=== PATIENT | male | born 1975 | race Caucasian/White ===

== ENCOUNTER 2017-10-22 23:22 | Emergency (ER) | payer SELFPAY ==
[~2017-10-22] VITALS: Ht 170.2 cm; Wt 72.6 kg
[2017-10-22 23:30] VITALS: BP 120/71
[2017-10-23] MEDS ORDERED: DIAZEPAM 10 MG/2 ML SYR IM ONE (00:20)
--- NOTE | 2017-10-23 00:41 | ER Report ---
History and Physical Time Seen By MD: 00:21 Hx. of Stated Complaint: PT STATES THAT HE HAS PAIN IN HIS UPPER BACK BETWEEN HIS SHOULDERS FROM CARRYING A BUCKET OF TOOLS UP TO HIS HOTEL ROOM YESTERDAY AFTERNOON. HAS TAKEN TYLENOL AND ALEVE AT HOME. HPI/ROS CHIEF COMPLAINT: back pain HISTORY OF PRESENT ILLNESS: R sided pain between the shoulder blades onset yesterday after carrying a 40 lb toolbox which slid suddenly off the back of a truck and pulled suddenly; pain worsened and feels achy today. REVIEW OF SYSTEMS: Respiratory: No cough, no dyspnea. Cardiovascular: No chest pain, no palpitations. Gastrointestinal: No vomiting, no abdominal pain. Musculoskeletal: No pain otherwise in extremities. Allergies: Coded Allergies: No Known Drug Allergies (Unverified , 10/22/17) Home Meds No Active Prescriptions or Reported Meds Constitutional Vital Sign - Last 24 Hours 10/22/17 23:30 Temp 98.0 Pulse 72 Resp 14 B/P (MAP) 120/71 Pulse Ox 94 O2 Delivery Room Air Physical Exam General Appearance: no acute distress, well developed, well nourished Eyes: Pupils equal and round no pallor or injection. ENT, Mouth: Mucous membranes are moist. Respiratory: There are no retractions, lungs are clear to auscultation. Cardiovascular: Regular rate and rhythm. No murmers, gallops or rubs Gastrointestinal: Abdomen is soft and non tender, no masses, bowel sounds normal. Neurological: normal cranial nerves, normal strength and sensation, normal gait Skin: Warm and dry, no rashes. Musculoskeletal: Neck is supple non tender. C,T and L-spine are nontender to palpation Extremities are nontender, nonswollen and have full range of motion. no edema DIFFERENTIAL DIAGNOSIS: After history and physical exam differential diagnosis was considered for muscle pull, muscle strain; no signs of fracture or dislocation, no signs of epidural or spinal abscess Medical Decision Making ED Course/Re-evaluation ED Course Plan of care was discussed and patient requested narcotics I offered Toradol and Valium IM patient refused Toradol and said he would accept the Valium. Per nursing staff patient was requesting narcotics and grabbing about not getting narcotics on the way out of the ER. I explained to him that narcotics would not solve the underlying problem. RN attempted to the same. He stated his doc would give him percs. He stated that the junkies have ruined things for everyone. Decision to Disposition Date: Oct 23, 2017 Decision to Disposition Time: 00:38 Depart Departure Latest Vital Signs Vital Signs Date Time Temp Pulse Resp B/P (MAP) Pulse Ox O2 Delivery O2 Flow Rate FiO2 10/22/17 23:30 98.0 72 14 120/71 94 Room Air Impression: Primary Impression: Back pain Additional Impression: Musculoskeletal pain Condition: Improved Disposition: HOME OR SELF-CARE New Scripts No Active Prescriptions or Reported Meds Patient Instructions: Musculoskeletal Pain (ED) Problem Qualifiers MALLORY LUCIO MD Oct 23, 2017 00:40
== END 2017-10-23 00:29 | disposition home or self-care (01) ==
LOC: ER 23:32
DX: M54.9 Dorsalgia, unspecified (principal); M79.1 Myalgia
CPT/HCPCS: 96372; 99282; J3360